=== PATIENT | male | born 1935 | race Caucasian/White ===

== ENCOUNTER 2022-09-12 10:17 | Emergency (ER) | payer MEDICARE ==
[~2022-09-12] VITALS: Ht 177.8 cm; Wt 87.2 kg
[~2022-09-12 10:17] MED LIST: ACET325C5 PO; AMIT50TA; ATOR1TAB19; CIDA500T2 PO; ECOT81TA5 PO; FURO40TA2; IRON1TAB2 PO; LISI20TA33; MESA400C2; NEXI20CA PO; PEPC1TAB5 PO; PROBCAP14 PO; ROPI1TAB73; VITA100T59 PO; VITMTA PO
[2022-09-12 10:18] VITALS: BP 154/74; TEMP 98.1; O2SAT 100
[2022-09-12 13:22] LABS: BASO % 0.4 % (0.0-1.0); EOS # 0.2 10^3/uL (0.0-0.5); EOS % 2.7 % (0.0-3.0); HEMATOCRIT 30.7 % (42.0-52.0); HEMOGLOBIN 9.5 g/dl (13.5-17.5); LYMPH % 13.5 % (24.0-44.0); MEAN CORPUSCULAR HEMOGLOBIN 30.4 pg (27.0-33.0); MEAN CORPUSCULAR HGB CONC 30.9 g/dl (32.0-36.5); MEAN CORPUSCULAR VOLUME 98.1 fl (80.0-96.0); MONO # 0.9 10^3/uL (0.0-0.8); MONO % 11.4 % (2.0-8.0); NEUTROPHILS # 5.3 10^3/uL (1.5-8.5); NEUTROPHILS % 71.3 % (36.0-66.0); PLATELET COUNT, AUTOMATED 326 10^3/uL (150-450); RED BLOOD COUNT 3.13 10^6/uL (4.30-6.10); WHITE BLOOD COUNT 7.4 10^3/uL (4.0-10.0)
[2022-09-12 13:58] LABS: ERYTHROCYTE SEDIMENTATION RATE 54 mm/hr (0-20)
[2022-09-12 14:01] LABS: ALBUMIN 3.6 G/DL (3.2-5.2); ALKALINE PHOSPHATASE 75 U/L (46-116); ALT/SGPT 19 U/L (7.0-40); AST/SGOT 10 U/L (<34); BILIRUBIN,DIRECT < 0.1 MG/DL (<0.4); BILIRUBIN,TOTAL 0.3 MG/DL (0.3-1.2); BLOOD UREA NITROGEN 57 MG/DL (9-23); CALCIUM LEVEL 9.1 MG/DL (8.3-10.6); CARBON DIOXIDE LEVEL 22 MMOL/L (20-31); CHLORIDE LEVEL 109 MMOL/L (98-107); CREATININE FOR GFR 2.48 MG/DL (0.70-1.30); GLOMERULAR FILTRATION RATE 26.4 (>35); GLUCOSE, FASTING 106 MG/DL (74-106); POTASSIUM SERUM 5.4 MMOL/L (3.5-5.1); SODIUM LEVEL 139 MMOL/L (136-145); TOTAL PROTEIN 6.6 G/DL (5.7-8.2)
== END 2022-09-12 14:51 | disposition home or self-care (01) ==
LOC: M ED 10:17
DX: R01.1 Cardiac murmur, unspecified (principal); D63.1 Anemia in chronic kidney disease; L98.9 Disorder of the skin and subcutaneous tissue, unspecified; I10 Essential (primary) hypertension; L57.0 Actinic keratosis; F17.290 Nicotine dependence, other tobacco product, uncomplicated; Z79.82 Long term (current) use of aspirin; Z79.899 Other long term (current) drug therapy